=== PATIENT | female | born 1960 | race Caucasian/White ===

== ENCOUNTER 2016-09-28 15:08 | Emergency (ER) | payer OTHER ==
[~2016-09-28] VITALS: Ht 170.2 cm; Wt 136.7 kg
[2016-09-28 15:13] VITALS: TEMP 37; Ht 170.2 cm; Wt 136.7 kg
[2016-09-28 17:03] LABS: BASO % 0.3 %; BASO ABS # 0.03 K/uL (0-0.2); COMPLETE YES; EOS % 2.2 %; IG% 0.2 %; LYMPH % 38.5 %; LYMPH ABS # 3.38 K/uL (1.2-3.4); MEAN CELL VOLUME 81.2 fL (80-100); MEAN CORPUSCULAR HEMOGLOBIN 27.4 pg (25-34); MEAN CORPUSCULAR HGB CONC 33.7 g/dl (32-36); MEAN PLATELET VOLUME 10.5 fL (7.4-10.4); MONO % 6.5 %; NEUT % 52.3 %; PLATELET COUNT 258 K/uL (130-400); RED BLOOD COUNT 4.68 M/uL (4.2-5.4); WHITE BLOOD COUNT 8.77 K/uL (4.8-10.8)
[2016-09-28 17:06] LABS: URINE APPEARANCE CLEAR (CLEAR); URINE BILIRUBIN NEG (NEG); URINE COLOR YELLOW; URINE EPITHELIAL CELL AUTO >30 /lpf (0-5); URINE NITRITE NEG (NEG); URINE SPECIFIC GRAVITY 1.024 (1.000-1.030); UROBILINOGEN NEG (NEG); ZZUR CULT IF INDIC CLEAN CATCH NO
[2016-09-28 17:07] LABS: MANUAL MICROSCOPIC REQUIRED? NO; REVIEW REQ? NO
[2016-09-28] MEDS ORDERED: SODIUM CHLORIDE 0.9% 1000ML 1,000 ML IV STA (17:07)
[2016-09-28] MEDS ORDERED: ONDANSETRON INJ 2 MG/ML 2 ML VIAL IV STA (17:07)
[2016-09-28] MEDS ORDERED: HYDROmorphone INJ 1 MG/ML SYR IV PRN (17:15)
[2016-09-28 17:19] LABS: BUN/CREATININE RATIO 14.9 (10-20); CALCIUM 9.6 mg/dl (8.5-10.1); CREATININE 0.68 mg/dl (0.60-1.20); POTASSIUM 3.6 mmol/L (3.5-5.1)
[2016-09-28 17:24] LABS: INR 1.2 (0.9-1.1); PROTHROMBIN TIME (PATIENT) 13.1 SECONDS (9.0-12.0)
[2016-09-28] MEDS ORDERED: GEMF600T3 PO (17:27)
[2016-09-28] MEDS ORDERED: GLC/500 PO ×2 (17:28)
[2016-09-28] MEDS ORDERED: INSDGIPEN SQ (17:31)
[2016-09-28] MEDS ORDERED: LOSA100T2 PO (17:32)
[2016-09-28] MEDS ORDERED: CEPH500C PO (17:33)
[2016-09-28] MEDS ORDERED: WARF1TAB PO (17:34)
[2016-09-28] MEDS ORDERED: BUPR-83 PO (17:34)
[2016-09-28] MEDS ORDERED: LACTCAP3 PO (17:35)
[2016-09-28] MEDS ORDERED: CETI10TA84 PO (17:36)
[2016-09-28] MEDS ORDERED: METO50TA16 PO (17:37)
[2016-09-28] MEDS ORDERED: PRLSR20 PO (17:38)
[2016-09-28] MEDS ORDERED: CLON0.5T3 PO (17:39)
--- NOTE | 2016-09-28 17:44 | DIAGNOSTIC IMAGING REPORT ---
CT SCAN OF THE ABDOMEN AND PELVIS WITHOUT CONTRAST CLINICAL HISTORY: Right flank pain COMPARISON STUDY: No previous studies for comparison. TECHNIQUE: CT scan of the abdomen and pelvis was performed from the lung bases to the proximal femurs. Images are reviewed in the axial, sagittal, and coronal planes. IV contrast was not administered for this examination. CT DOSE: 2056.88 mGy.cm FINDINGS: Lower chest: The heart is normal in size and configuration, without pericardial effusion. The lung bases and pleural spaces are clear. Liver: The unenhanced liver is normal in size, contour, and attenuation. There is no intrahepatic biliary ductal dilatation. Gallbladder: Unremarkable. Spleen: Normal in size and attenuation. Pancreas: Unremarkable. Adrenal glands: There is a 19 mm left adrenal adenoma Kidneys: There are multiple right renal calculi, the largest of which is located within the lower pole measuring 1 cm. There is an equivocal partially calcified 13 mm isodense right renal mass. There is a 3 cm left renal cyst. There is no significant hydronephrosis. No ureteral or bladder calculi are visualized. Bowel: There are no transition zones indicate bowel obstruction. There is a supraumbilical fat-containing ventral hernia, and lower anterior abdominal wall fat-containing ventral hernia. There is no acute diverticulitis. By history the appendix is surgically absent. Peritoneum: There is no intraperitoneal free air or abdominal ascites. Vasculature: The abdominal aorta is normal in course and caliber. Adenopathy: None. Pelvic viscera: The uterus appears surgically absent. Skeletal structures: No destructive osseous lesions are seen. IMPRESSION: 1. No evidence of bowel obstruction. No evidence of free air 2. Right-sided nephrolithiasis. No ureteral or bladder calculi identified 3. Equivocal 13 mm partially calcified hypodense right renal mass 4. Fat-containing ventral hernias 5. No acute inflammatory changes identified Electronically signed by: Kali Blanc M.D. 09/28/2016 5:43 PM Dictated Date/Time: 09/28/2016 5:36 PM
--- NOTE | 2016-09-28 18:24 | DIAGNOSTIC IMAGING REPORT ---
KUB CLINICAL HISTORY: Abdominal pain. COMPARISON STUDY: CT scan dated 09/28/2016 FINDINGS: There is a lower pole right renal calculus measuring 11 mm. There is a central small bowel loop which is mildly dilated measuring 4 cm. There is gas present throughout the colon. There are no transition zones indicate a high-grade bowel obstruction. Pelvic basin calcifications likely represent phleboliths. Degenerative changes are present in the lumbar spine. There is a scoliosis. IMPRESSION: 1. Right-sided nephrolithiasis 2. Mildly dilated central abdominal small bowel loop, but no evidence of a high-grade bowel obstruction Electronically signed by: Kali Blanc M.D. 09/28/2016 6:23 PM Dictated Date/Time: 09/28/2016 6:21 PM
[2016-09-28 18:29] VITALS: BP 131/96; PULSE 110; O2SAT 95
--- NOTE | 2016-09-28 22:03 | EMERGENCY ROOM VISIT NOTE ---
History Report prepared by Young: Mary Grace Rocha Under the Supervision of: Dr. Shen Zambrano M.D. First contact with patient: 16:39 Chief Complaint: FLANK PAIN Stated Complaint: RIGHT FLANK PAIN History of Present Illness The patient is a 55 year old female who presents to the Emergency Room with complaints of right flank pain that began in March. She currently rates her discomfort as a 10/10 in severity. The patient states that she has a known kidney stone in her right kidney that is too large to pass. She states that she has multiple other stones in her kidneys, but is unsure how many. The patient states that her last CT scan was in July, but she denies ever having a CT scan done here at [facility]. The patient states that she follows with [facility] and was referred to the emergency department for further work up. The patient additionally associates a fever and chills with her symptoms today. The patient notes a history of atrial fibrillation, noting that she is on Coumadin. Pt denies LOC, headache, diaphoresis, visual changes, neck pain, chest pain, breathing difficulties, nausea, vomiting, abdominal pain, back pain, melena, hematochezia, urinary symptoms, numbness, weakness, lymphadenopathy, rash, or other complaints. Source of History: patient Onset: march Position: other (right flank) Symptom Intensity: 10/10 Timing: other (persistent) Associated Symptoms: + chills, + fevers Review of Systems See HPI for pertinent positives and negatives. A total of ten systems were reviewed and were otherwise negative. Past Medical & Surgical Medical Problems: (1) Atrial fibrillation Social History Smoking Status: Current Every Day Smoker Marital Status: Housing Status: lives with significant other Occupation Status: unemployed Current/Historical Medications Scheduled Bupropion (Wellbutrin), 100 MG PO BID Cephalexin Monohydrate (Keflex), 500 MG PO BID Gemfibrozil (Lopid), 600 MG PO DAILY Insulin Glargine (Lantus Solostar), 40 UNITS SQ AMPM Lactobacillus (Acidophilus), 1 CAP PO DAILY Losartan Potassium & Hydrochlo (Hyzaar), 1 TAB PO DAILY Metformin Hcl (Glucophage), 1,000 MG PO QAM&HS Metformin Hcl (Glucophage), 500 MG PO DAILY IN AFTERNOON Metoprolol Tartrate (Lopressor) (Lopressor), 50 MG PO BID Omeprazole (Prilosec), 20 MG PO DAILY Warfarin Sodium (Coumadin), 1 MG PO DAILY Scheduled PRN Cetirizine (Zyrtec), 10 MG PO DAILY PRN for ALLERGIC REACTION Clonazepam (Klonopin), 0.5 MG PO BID PRN for Anxiety Allergies Coded Allergies: No Known Allergies (Unverified , 09/28/16) Physical Exam Vital Signs Date Time Temp Pulse Resp B/P Pulse Ox O2 Delivery O2 Flow Rate FiO2 09/28/16 18:29 110 18 131/96 95 Room Air 09/28/16 15:13 37.0 111 18 142/75 96 Room Air Physical Exam GENERAL: Awake, alert, uncomfortable appearing HENT: Normocephalic, atraumatic. Oropharynx unremarkable. EYES: Normal conjunctiva. Sclera non-icteric. NECK: Supple. No nuchal rigidity. FROM. No JVD. RESPIRATORY: Clear to auscultation. CARDIAC: Regular rate, normal rhythm. Extremities warm and well perfused. Pulses equal. ABDOMEN: Diffuse abdominal tenderness Soft, non-distended. No rebound or guarding. No masses. RECTAL: Deferred. MUSCULOSKELETAL: Chest examination reveals no tenderness. The back is symmetrical on inspection without obvious abnormality. There is right CVA tenderness to palpation. No joint edema. LOWER EXTREMITIES: 1+ lower extremity edema. Chronic venous discoloration. Calves are equal size bilaterally and non-tender. NEURO: Normal sensorium. No sensory or motor deficits noted. SKIN: No rash or jaundice noted. Medical Decision & Procedures ER Provider Diagnostic Interpretation: X ray results as stated below per my interpretation and radiologist interpretation. Other radiology results as stated below per my review and radiologist interpretation KUB CLINICAL HISTORY: Abdominal pain. COMPARISON STUDY: CT scan dated 09/28/2016 FINDINGS: There is a lower pole right renal calculus measuring 11 mm. There is a central small bowel loop which is mildly dilated measuring 4 cm. There is gas present throughout the colon. There are no transition zones indicate a high-grade bowel obstruction. Pelvic basin calcifications likely represent phleboliths. Degenerative changes are present in the lumbar spine. There is a scoliosis. IMPRESSION: 1. Right-sided nephrolithiasis 2. Mildly dilated central abdominal small bowel loop, but no evidence of a high-grade bowel obstruction Electronically signed by: aKli Blanc M.D. 09/28/2016 6:23 PM Dictated Date/Time: 09/28/2016 6:[address] SCAN OF THE ABDOMEN AND PELVIS WITHOUT CONTRAST CLINICAL HISTORY: Right flank pain COMPARISON STUDY: No previous studies for comparison. TECHNIQUE: CT scan of the abdomen and pelvis was performed from the lung bases to the proximal femurs. Images are reviewed in the axial, sagittal, and coronal planes. IV contrast was not administered for this examination. CT DOSE: 2056.88 mGy.cm FINDINGS: Lower chest: The heart is normal in size and configuration, without pericardial effusion. The lung bases and pleural spaces are clear. Liver: The unenhanced liver is normal in size, contour, and attenuation. There is no intrahepatic biliary ductal dilatation. Gallbladder: Unremarkable. Spleen: Normal in size and attenuation. Pancreas: Unremarkable. Adrenal glands: There is a 19 mm left adrenal adenoma Kidneys: There are multiple right renal calculi, the largest of which is located within the lower pole measuring 1 cm. There is an equivocal partially calcified 13 mm isodense right renal mass. There is a 3 cm left renal cyst. There is no significant hydronephrosis. No ureteral or bladder calculi are visualized. Bowel: There are no transition zones indicate bowel obstruction. There is a supraumbilical fat-containing ventral hernia, and lower anterior abdominal wall fat-containing ventral hernia. There is no acute diverticulitis. By history the appendix is surgically absent. Peritoneum: There is no intraperitoneal free air or abdominal ascites. Vasculature: The abdominal aorta is normal in course and caliber. Adenopathy: None. Pelvic viscera: The uterus appears surgically absent. Skeletal structures: No destructive osseous lesions are seen. IMPRESSION: 1. No evidence of bowel obstruction. No evidence of free air 2. Right-sided nephrolithiasis. No ureteral or bladder calculi identified 3. Equivocal 13 mm partially calcified hypodense right renal mass 4. Fat-containing ventral hernias 5. No acute inflammatory changes identified Electronically signed by: Kali Blanc M.D. 09/28/2016 5:43 PM Dictated Date/Time: 09/28/2016 5:36 PM Laboratory Results 09/28/16 16:54 Red Blood Count 4.68, Mean Corpuscular Volume 81.2, Mean Corpuscular Hemoglobin 27.4, Mean Corpuscular Hemoglobin Concent 33.7, Mean Platelet Volume 10.5, Neutrophils (%) (Auto) 52.3, Lymphocytes (%) (Auto) 38.5, Monocytes (%) (Auto) 6.5, Eosinophils (%) (Auto) 2.2, Basophils (%) (Auto) 0.3, Neutrophils # (Auto) 4.58, Lymphocytes # (Auto) 3.38, Monocytes # (Auto) 0.57, Eosinophils # (Auto) 0.19, Basophils # (Auto) 0.03 09/28/16 16:54 Test 09/28/16 16:49 09/28/16 16:54 Urine Color YELLOW Urine Appearance CLEAR (CLEAR) Urine pH 6.0 (4.5-7.5) Urine Specific [place] 1.024 (1.000-1.030) Urine Protein NEG (NEG) Urine Glucose (UA) 2+ (NEG) Urine Ketones NEG (NEG) Urine Occult Blood 1+ (NEG) Urine Nitrite NEG (NEG) Urine Bilirubin NEG (NEG) Urine Urobilinogen NEG (NEG) Urine Leukocyte Esterase SMALL (NEG) Urine WBC (Auto) 5-10 /hpf (0-5) Urine RBC (Auto) 10-30 /hpf (0-4) Urine Hyaline Casts (Auto) 1-5 /lpf (0-5) Urine Epithelial Cells (Auto) >30 /lpf (0-5) Urine Bacteria (Auto) NEG (NEG) White Blood Count 8.77 K/uL (4.8-10.8) Red Blood Count 4.68 M/uL (4.2-5.4) Hemoglobin 12.8 g/dL (12.0-16.0) Hematocrit 38.0 % (37-47) Mean Corpuscular Volume 81.2 fL (80-100) Mean Corpuscular Hemoglobin 27.4 pg (25-34) Mean Corpuscular Hemoglobin Concent 33.7 g/dl (32-36) Platelet Count 258 K/uL (130-400) Mean Platelet Volume 10.5 fL (7.4-10.4) Neutrophils (%) (Auto) 52.3 % Lymphocytes (%) (Auto) 38.5 % Monocytes (%) (Auto) 6.5 % Eosinophils (%) (Auto) 2.2 % Basophils (%) (Auto) 0.3 % Neutrophils # (Auto) 4.58 K/uL (1.4-6.5) Lymphocytes # (Auto) 3.38 K/uL (1.2-3.4) Monocytes # (Auto) 0.57 K/uL (0.11-0.59) Eosinophils # (Auto) 0.19 K/uL (0-0.5) Basophils # (Auto) 0.03 K/uL (0-0.2) RDW Standard Deviation 43.1 fL (36.4-46.3) RDW Coefficient of Variation 14.5 % (11.5-14.5) Immature Granulocyte % (Auto) 0.2 % Immature Granulocyte # (Auto) 0.02 K/uL (0.00-0.02) Prothrombin Time 13.1 SECONDS (9.0-12.0) Prothromb Time International Ratio 1.2 (0.9-1.1) Activated Partial Thromboplast Time 26.6 SECONDS (21.0-31.0) Partial Thromboplastin Ratio 1.0 Anion Gap 10.0 mmol/L (3-11) Est Creatinine Clear Calc Drug Dose 132.1 ml/min Estimated GFR () 112.5 Estimated GFR (Non- 97.1 BUN/Creatinine Ratio 14.9 (10-20) Calcium Level 9.6 mg/dl (8.5-10.1) Total Bilirubin 0.4 mg/dl (0.2-1) Direct Bilirubin 0.1 mg/dl (0-0.2) Aspartate Amino Transf (AST/SGOT) 7 U/L (15-37) Alanine Aminotransferase (ALT/SGPT) 17 U/L (12-78) Alkaline Phosphatase 79 U/L (45-117) Total Protein 7.6 gm/dl (6.4-8.2) Albumin 3.9 gm/dl (3.4-5.0) Lipase 146 U/L (73-393) Laboratory results reviewed by me Medications Administered Medications (Trade) Dose Ordered Sig/Sasha Route Start Time Stop Time Status Last Admin Dose Admin Hydromorphone HCl (Dilaudid Inj) 1 mg Q15M PRN IV 09/28/16 17:15 09/28/16 18:59 DC 09/28/16 17:18 1 MG Ondansetron HCl 4 mg 4 mg NOW STAT IV 09/28/16 17:07 09/28/16 17:09 DC 09/28/16 17:17 4 MG Sodium Chloride (Nss 1000ml) 1,000 ml @ 999 mls/hr Q1H1M STAT IV 09/28/16 17:07 09/28/16 18:07 DC 09/28/16 17:07 999 MLS/HR ECG Indication: other (history of atrial fibrillation) Rate (beats per minute): 108 Rhythm: atrial flutter Findings: nonspecific-ST abn, no acute ischemic change, other (low voltage QRS) ED Course 1705: The patient was evaluated in room A10. A complete history and physical exam was performed. 170: Ordered Sodium Chloride 1000 ml @ 999 mls/hr IV, Zofran Inj 4 mg IV. 1715: Ordered Dilaudid Inj 1 mg IV. 175: I reevaluated the patient and she is resting comfortably. 180: I discussed the patient's case with Dr. Machuca at this time. 183: I reevaluated the patient and she is resting comfortably. I discussed all the exam findings with her and I discussed the treatment plan. She verbalized complete understanding and agreement. She is ready to go home. Medical Decision Triage Nursing notes reviewed and agree them. The patient's history was concerning for flank and abdominal pain. Differential diagnosis: Etiologies such as renal colic, appendicitis, diverticulitis, mesenteric ischemia, aortic pathology, infections, inflammatory bowel disease, PUD, biliary pathology, UTI, as well as others were entertained. Physical examination findings: As above. ER treatment provided: IV Dilaudid, IV normal saline, and IV Zofran On reassessment the patient felt better. Diagnostic interpretation by me: The labs revealed an unremarkable CBC and chemistry panel except for mild hyperglycemia. The patient is diabetic. Urinalysis did reveal some blood but mostly epithelial cells. Urinalysis revealed hematuria. There was no sign of UTI. Imaging studies: CT of the abdomen and pelvis as above. Consultation: A consultation was placed with urology. The case was discussed and diagnostics were reviewed. The patient has a right-sided kidney stone but no evidence of obstruction. She notes a lot of pain but has chronic pain issues. The patient has recently received a large prescription for hydrocodone 10 mg tablets. I had a long discussion about her issues. Urology will see her in the office. No recommendation for emergent intervention was made from them. The patient overall is doing well. She will need to closely monitor her INR as she states they decreased her dose recently, possibly because she was supratherapeutic. That information is not available at this time. The patient is subtherapeutic. Since the reasoning for the decrease is not available the patient will continue her current medication but follow-up with the place that is directing her Coumadin tomorrow. She will also follow-up with urology this week. I did discuss following up with pain management. The patient states that that is currently in process. Since she has pain medication at home additional pain medication was not prescribed. I gave my usual and customary discussion regarding this issue. By the evaluation outlined above emergent etiologies such as appendicitis, diverticulitis, mesenteric ischemia, aortic pathology, infections, inflammatory bowel disease, PUD, biliary pathology, UTI, as well as others were deemed relatively unlikely. The patient was informed about the findings as listed above. All questions were answered and she was pleased with the treatment. Return instructions were outlined and the patient was discharged in stable condition. Outpatient prescription management: None. The patient also notes she has nausea medicine at home. Referral: The pt was referred to [facility] for follow up care regarding their stone. The patient was referred back to her primary care physician for follow-up as well. The chart was completed utilizing [employer] Speech voice recognition software. Grammatical errors, random word insertions, pronoun errors, and incomplete sentences are an occasional consequence of this system due to software limitations, ambient noise, and hardware issues. Any formal questions or concerns about the content, text, or information contained within the body of this dictation should be directly addressed to the physician for clarification. [place] Drug Monitoring Program Search Results: patient reviewed within database Drug Monitoring Findings: The patient has had multiple prescriptions for oxycodone and hydrocodone written over the last 12 months. These totaled approximately 270 pills, mostly being 10 mg dosages. Consults Time Called: 1800 Consulting Physician: Dr. Machuca, Urology Returned Call: [phone] I discussed the patients case with Dr. Machuca Urologedith. Given the patient's history and findings he felt emergent intervention is not necessary. She is not obstructed. He recommended the patient continue her current medications and he will follow her up in the office as she will need preoperative workup before any intervention is done. Impression Primary Impression: Flank pain Additional Impression: Kidney stone Scribe Attestation The scribe's documentation has been prepared under my direction and personally reviewed by me in its entirety. I confirm that the note above accurately reflects all work, treatment, procedures, and medical decision making performed by me. Departure Information Dispostion Home / Self-Care Referrals No Doctor, Assigned (PCP) Forms HOME CARE DOCUMENTATION FORM, IMPORTANT VISIT INFORMATION, Work Instructions Patient Instructions My [facility] Additional Instructions Continue the current pain and nausea medications. Acetaminophen(Tylenol) may be used for fever or pain. Use 1000mg every six hours as needed. Avoid using more than 4000mg in a 24 hour period. This medication can be taken if you need to drive, work, or perform activities which may be dangerous when taking narcotic pain medication. Rest and avoid strenuous activity until your symptoms resolve. Drink plenty of fluids. Return to the ER for worsening abdominal or back pain, vomiting, fevers, passing out, or as needed. Follow-up with your primary physician tomorrow as well. Discuss pain management referral. Follow-up with your Coumadin certified energy manager tomorrow. Let them know your INR was low at 1.2. Follow up with [facility] tomorrow, [phone], to arrange a visit with Dr. Machuca. Please tell the law secretary he is aware and will see this week. Problem Qualifiers
== END 2016-09-28 18:50 | disposition home or self-care (01) ==
LOC: C.EDB 15:10 → C.EDA 18:50
DX: R10.9 Unspecified abdominal pain (principal); N20.0 Calculus of kidney; R79.1 Abnormal coagulation profile; I48.91 Unspecified atrial fibrillation; F17.200 Nicotine dependence, unspecified, uncomplicated; Z79.01 Long term (current) use of anticoagulants